=== PATIENT | female | born 1985 | race Caucasian/White ===

== ENCOUNTER → 2019-03-12 | Outpatient (CLI) | payer OTHER ==
--- NOTE | 2019-03-12 13:23 | REP ---
MRI RIGHT KNEE: TECHNIQUE: Axial proton density fat saturation, sagittal proton density T2 STIR, water excitation, coronal proton density, proton density fat saturation. Menisci are intact. The cruciate and collateral ligaments are intact. The extensor mechanism is intact. There is mild global chondromalacia without evidence of osteochrondral defect. There is no bone marrow edema or occult fracture. There is mild nonspecific edema anterior to the patellar tendon. There is a normal amount of joint fluid. A Taylor's cyst in the medial popliteal fossa measures approximately 2.9 x 1.8 x 1.5 cm. IMPRESSION: No evidence of meniscal tear. Cruciate and collateral ligaments intact. Mild nonspecific soft tissue edema anterior to the patellar tendon. Mild global chondromalacia. Taylor's cyst. Electronically Signed by Jonny Sepulveda MD 03/12/2019 06:51 P
== END ==
LOC: M PLARAD 11:00
PROVIDERS: ATTEND Orthopaedic Surgery Sports Medicine
DX: M25.561 Pain in right knee (principal); M71.21 Synovial cyst of popliteal space [Baker], right knee; M94.261 Chondromalacia, right knee